=== PATIENT | male | born 1930 | race Caucasian/White ===

== ENCOUNTER 2021-04-23 14:10 | Outpatient (CLI) | payer MEDICARE, OTHER | END 2021-04-23 23:59 | disposition home or self-care (01) | LOC: 64 CT 14:10 | PROVIDERS: ATTEND Family Medicine | DX: R91.1 Solitary pulmonary nodule (principal); K80.20 Calculus of gallbladder without cholecystitis without obstruction | CPT/HCPCS: 71046; 71250 ==